=== PATIENT | female | born 1930 | race Caucasian/White ===

== ENCOUNTER 2017-08-12 16:22 | Emergency (ER) | payer OTHER, BC ==
[~2017-08-12] VITALS: Ht 157.5 cm; Wt 52.4 kg
[~2017-08-12 16:22] MED LIST: AMIODARONE HCL200 MG GT; ARTHRITIS PAIN650 M1 PO; ARTIFICIAL TEAR1510 BOTH EYES; ATHENOL325 MG PO; CALCIUM CA1250 MG/5 GT; CALTRATE 6001 TABLET PO; CALTRATE PLUS1 EACH PO; CENTRUM SILV1 TABLET PO; Calcium Carbonate G; Cordarone, Pacerone G; DAILY VITAMIN1 EAC8 PO; FEOSOL300 MG/5 M G; FERROUS SU220 MG/51 GT; FISH OIL 1,0001 EA10 PO; FISH OIL300 MG PO; FOLIC ACID0.4 MG PO; FOLIC ACID1 MG GT; FOLIC ACID1 MG PO; FOSAMAX70 MG PO; Folvite G; GLUCOSAMINE &1 EACH PO; HYDROCODON-ACE1 EAC7 PO; KRILL OIL 1,501 EACH PO; LASIX20 MG GT; LEVOTHROID,S0.075 MG PO; LEVOTHYROXINE75 MCG PO; LISINOPRIL10 MG PO; LISINOPRIL2.5 MG GT; LOVASTATIN40 MG GT; LOVENOX40 MG/0.4 SC; Lasix G; Levothroid,Synthroid G; Lopressor G; METHOTREXATE2.5 MG PO; METOPROLOL SUCC25 MG GT; Mevacor G; OSMOLITE 1.21000 ML GT; OSTEO BI-FLEX1 EAC1 PO; PAIN RELIEF EX500 MG PO; PEN-VEE K,VEET500 MG PO; PINDOLOL5 MG PO; PRESERVISION T1 EACH PO; Protonix GT; SYNTHROID100 MCG GT; SYNTHROID88 MCG PO; Silvadene,SSD,Therma TP; TYLENOL REGULA325 MG PO; Tears Naturale II,Ar BOTH EYES; Tylenol Extra Streng G; VISKEN5 MG PO; ZESTRIL,PRINIV2.5 MG PO; ZESTRIL,PRINIVI20 MG PO; Zantac G; Zestril,Prinivil G; preservision
[2017-08-12 19:03] VITALS: BP 160/87
== END 2017-08-12 19:04 | disposition home or self-care (01) ==
LOC: EME 16:22
DX: S40.012A Contusion of left shoulder, initial encounter (principal); M79.601 Pain in right arm; M79.642 Pain in left hand; V49.40XA Driver injured in collision with unspecified motor vehicles in traffic accident, initial encounter; K21.9 Gastro-esophageal reflux disease without esophagitis; E03.9 Hypothyroidism, unspecified; I10 Essential (primary) hypertension; Z87.442 Personal history of urinary calculi; Z85.819 Personal history of malignant neoplasm of unspecified site of lip, oral cavity, and pharynx
CPT/HCPCS: 71020; 73000; 73030; 73130; 99281; 99284

== ENCOUNTER 2017-08-13 09:28 | Emergency (ER) | payer OTHER, BC ==
[~2017-08-13] VITALS: Ht 157.5 cm; Wt 50.3 kg
[2017-08-13 09:46] VITALS: BP 147/87
== END 2017-08-13 10:56 | disposition left against medical advice (07) ==
LOC: EME 09:28
DX: S69.92XD Unspecified injury of left wrist, hand and finger(s), subsequent encounter (principal); Z46.89 Encounter for fitting and adjustment of other specified devices; V49.49XD Driver injured in collision with other motor vehicles in traffic accident, subsequent encounter; I10 Essential (primary) hypertension; Z88.2 Allergy status to sulfonamides
CPT/HCPCS: 99281; 99284

== ENCOUNTER 2018-04-10 10:31 | Observation (INO) | payer OTHER, BC ==
[~2018-04-10] VITALS: Ht 157.5 cm; Wt 52.9 kg
[2018-04-10 11:42] LABS: BASOPHIL (%) 0.3 % (0-1); EOSINOPHIL (%) 1.4 % (0-5); EOSINOPHIL COUNT 0.1 K/uL (0-0.3); HEMATOCRIT 34.2 % (36.0-46.0); HEMOGLOBIN 11.5 G/DL (11.9-15.5); IMMATURE GRANULOCYTE (%) 0.5 % (0.0-0.7); LYMPHOCYTE (%) 16.9 % (15-42); LYMPHOCYTE COUNT 1.1 K/uL (1.0-2.8); MCH 32.6 PG (29.0-34.0); MCHC 33.6 G/DL (30.0-36.0); MCV 96.9 FL (83-99); MONOCYTE (%) 7.6 % (3-12); MONOCYTE COUNT 0.5 K/uL (0-0.8); NEUTROPHIL (%) 73.3 % (45-76); NEUTROPHIL COUNT 4.8 K/uL (1.8-6.4); RBC DIS.WIDTH-CV 15.1 % (11.8-14.6); RBC DIS.WIDTH-SD 52.9 % (39-53); RED BLOOD COUNT 3.53 M/uL (3.80-5.20); WHITE BLOOD COUNT 6.5 K/uL (4.1-10.2)
[2018-04-10 11:46] LABS: CARBON DIOXIDE (BICARBONATE) 28.5 MEQ/L (20-31)
[2018-04-10 11:50] LABS: CHLORIDE 108 mEq/L (99-109); POTASSIUM 4.6 mEq/L (3.7-5.4); SODIUM 142 mEq/L (136-147)
[2018-04-10 11:53] LABS: GLUCOSE 95 mg/dL (70-99); TOTAL PROTEIN 6.5 g/dL (6.4-8.3)
[2018-04-10 11:55] LABS: TOTAL BILIRUBIN 0.6 mg/dL (0.0-1.0)
[2018-04-10 11:56] LABS: ALKALINE PHOSPHATASE 72 IU/L (3-129); CREATININE 0.7 mg/dL (0.6-1.3); GFR ESTIMATE (CALCULATED) > 59 mL/min/
[2018-04-10 11:57] LABS: UREA NITROGEN (BUN) 24 mg/dL (9-23)
[2018-04-10 11:58] LABS: AST (GOT) 44 IU/L (2-34)
[2018-04-10 11:59] LABS: ALT (GPT) 25 IU/L (3-49)
[2018-04-10 12:03] LABS: TROP-I INTERPRETATION NEGATIVE; TROPONIN-I 0.19 ng/mL (0.0-0.30)
[2018-04-10 12:31] LABS: PLAT.SUFFICIENCY ADEQUATE; PLATELET COUNT 250 K/uL (156-360)
[2018-04-10] MEDS ORDERED: MEGARED OMEGA-1 EAC1 PO (15:26)
[2018-04-10 16:11] VITALS: BP 167/92
[2018-04-10 17:17] VITALS: BP 163/86
[2018-04-10 18:46] LABS: TROP-I INTERPRETATION NEGATIVE; TROPONIN-I 0.28 ng/mL (0.0-0.30)
[2018-04-10 19:07] VITALS: BP 144/80
[2018-04-10 23:11] VITALS: BP 150/80
[2018-04-11 01:13] LABS: TROP-I INTERPRETATION NEGATIVE; TROPONIN-I 0.21 ng/mL (0.0-0.30)
[2018-04-11 03:15] VITALS: BP 153/85
[2018-04-11 05:35] LABS: HEMATOCRIT 33.6 % (36.0-46.0); HEMOGLOBIN 11.2 G/DL (11.9-15.5); MCHC 33.3 G/DL (30.0-36.0); PLATELET COUNT 253 K/uL (156-360); RBC DIS.WIDTH-SD 50.8 % (39-53)
[2018-04-11 06:00] LABS: CHLORIDE 104 MEQ/L (99-109); CREATININE 0.7 MG/DL (0.6-1.3); GFR ESTIMATE (CALCULATED) > 59 mL/min/; GLUCOSE 99 mg/dL (70-99); SODIUM 141 MEQ/L (136-147); UREA NITROGEN (BUN) 23 mg/dL (9-23)
[2018-04-11 06:22] LABS: POTASSIUM 3.5 MEQ/L (3.7-5.4)
[2018-04-11 07:04] VITALS: BP 143/72
[2018-04-11 12:02] VITALS: BP 145/71
[2018-04-11 16:26] VITALS: BP 131/67
[2018-04-11 18:56] VITALS: BP 127/64
[2018-04-11 23:49] VITALS: BP 134/77
[2018-04-12 03:17] VITALS: BP 130/74
[2018-04-12 07:08] VITALS: BP 127/70
[2018-04-12 11:42] VITALS: BP 114/59
[2018-04-12] MEDS ORDERED: CARVEDILOL3.125 MG PO (13:10)
[2018-04-12] MEDS ORDERED: LASIX40 MG PO (13:11)
[2018-04-12] MEDS ORDERED: K-DUR20 MEQ PO (13:11)
== END 2018-04-12 16:36 | disposition home or self-care (01) ==
LOC: EME 10:31 → EDOF 14:31 → ENRESERV 14:34 → 4SOUTH 15:28
PROVIDERS: Emergency Medicine; Hospitalist
PROC: B246ZZZ Ultrasonography of Right and Left Heart (ICD-10-PCS; principal; 2018-04-12)
DX: I11.0 Hypertensive heart disease with heart failure (principal); I50.33 Acute on chronic diastolic (congestive) heart failure; M06.9 Rheumatoid arthritis, unspecified; E03.9 Hypothyroidism, unspecified; R94.31 Abnormal electrocardiogram [ECG] [EKG]; I44.7 Left bundle-branch block, unspecified; I08.3 Combined rheumatic disorders of mitral, aortic and tricuspid valves; I27.20 Pulmonary hypertension, unspecified; M19.90 Unspecified osteoarthritis, unspecified site; Z82.49 Family history of ischemic heart disease and other diseases of the circulatory system; Z88.2 Allergy status to sulfonamides; Z91.048 Other nonmedicinal substance allergy status
CPT/HCPCS: 71045; 71046; 80048; 80053; 82803; 83880; 84484; 85025; 85027; 93005; 93306; 94640; 94640 76; 94760; 99202; 99281; 99285; G0378; G8978 GP CH; G8979 GP CH; G8980 GP CH; G8987 GO CH; G8988 GO CH; G8989 GO CH; J1644; J1940